=== PATIENT | female | born 1960 | race Caucasian/White ===

== ENCOUNTER 2019-04-19 07:36 | Outpatient (CLI) | payer OTHER | END 2019-04-19 23:59 | disposition home or self-care (01) | LOC: PETCFH 07:36 | PROVIDERS: ATTEND Surgery Surgical Oncology | DX: C43.71 Malignant melanoma of right lower limb, including hip (principal); Z90.710 Acquired absence of both cervix and uterus | CPT/HCPCS: 78816; A9552 ==

== ENCOUNTER → 2019-09-04 | Outpatient (CLI) | payer OTHER ==
[~2019-09-04] MED LIST: CITA20TA6 PO; LEVO50TA5 PO
== END | disposition home or self-care (01) ==
LOC: PETCFH 12:33
PROVIDERS: ATTEND Internal Medicine Hematology & Oncology
DX: C43.71 Malignant melanoma of right lower limb, including hip (principal)
CPT/HCPCS: 78816; A9552

== ENCOUNTER → 2019-10-10 | Outpatient (CLI) | payer OTHER | END | disposition home or self-care (01) | LOC: ROC 07:08 | PROVIDERS: ATTEND Radiology Radiation Oncology | DX: C43.71 Malignant melanoma of right lower limb, including hip (principal) | CPT/HCPCS: 99214; G0463 ==

== ENCOUNTER → 2020-03-26 | Outpatient (CLI) | payer OTHER | END | disposition home or self-care (01) | LOC: PETCFH 03-19 07:53 | PROVIDERS: ATTEND Internal Medicine Hematology & Oncology | DX: C43.71 Malignant melanoma of right lower limb, including hip (principal); K44.9 Diaphragmatic hernia without obstruction or gangrene | CPT/HCPCS: 78816; A9552 ==